=== PATIENT | female | born 1975 | race Caucasian/White ===

== ENCOUNTER 2017-09-06 10:44 | Outpatient (CLI) | payer BC | END 2017-09-06 10:45 | disposition home or self-care (01) | LOC: BICMAMMO 10:44 | PROVIDERS: ATTEND Obstetrics & Gynecology | DX: Z12.31 Encounter for screening mammogram for malignant neoplasm of breast (principal) | CPT/HCPCS: 77063; 77067 ==

== ENCOUNTER 2018-10-10 16:19 | Outpatient (CLI) | payer BC ==
--- NOTE | 2018-10-10 17:05 | MMO ---
Bilateral MAMMO Bilat Screen [facility]. CLINICAL HISTORY: Patient is 42 years old and is seen for screening. The patient has no family history of breast cancer. The patient has no personal history of cancer. VIEWS: The views performed were: bilateral craniocaudal with tomosynthesis and bilateral mediolateral oblique with tomosynthesis. FILMS COMPARED: The present examination has been compared to prior imaging studies performed at [facility] on 07/13/2016, 07/23/2016 and 09/06/2017, and at [facility] on 11/11/2011. MAMMOGRAM FINDINGS: There are scattered fibroglandular densities. Right breast: Asymmetry in the upper outer right breast. Left breast: There are no suspicious masses, calcifications or areas of architectural distortion. In the left breast, there are no suspicious masses, calcifications or areas of architectural distortion. IMPRESSION: FINDING IN THE RIGHT BREAST REQUIRES ADDITIONAL EVALUATION. ADDITIONAL PROJECTIONS (RIGHT CRANIOCAUDAL SPOT COMPRESSION; RIGHT MEDIOLATERAL OBLIQUE SPOT COMPRESSION; AND RIGHT MEDIOLATERAL) ARE RECOMMENDED. ULTRASOUND IF ASYMMETRY PERSISTS. THE RESULTS OF THIS EXAM WERE SENT TO THE PATIENT. ACR BI-RADS Category 0 - Incomplete: Need additional imaging evaluation. [facility] will notify the patient of the need for additional imaging services. MAMMOGRAPHY NOTE: 1. A negative mammogram report should not delay a biopsy if a dominant of clinically suspicious mass is present. 2. Approximately 10% to 15% of breast cancers are not detected by mammography. 3. Adenosis and dense breasts may obscure an underlying neoplasm. Reported by: CHITO CLAYTON MD Electonically Signed: [id number]
== END 2018-10-10 16:20 | disposition home or self-care (01) ==
LOC: BICMAMMO 16:19
PROVIDERS: ATTEND Obstetrics & Gynecology
DX: Z12.31 Encounter for screening mammogram for malignant neoplasm of breast (principal)
CPT/HCPCS: 77063; 77067

== ENCOUNTER 2018-10-13 13:47 | Outpatient (CLI) | payer BC ==
--- NOTE | 2018-10-17 06:47 | MMO ---
Right Breast MAMMO Unilat Diag [facility]. CLINICAL HISTORY: Patient is 42 years old and is seen for diagnostic exam. The patient has no family history of breast cancer. The patient has no personal history of cancer. VIEWS: The views performed were: right craniocaudal with tomosynthesis; right mediolateral oblique with tomosynthesis; and right mediolateral with tomosynthesis. FILMS COMPARED: The present examination has been compared to prior imaging studies performed at [facility] on 07/13/2016, 07/23/2016, 09/06/2017 and 10/10/2018. MAMMOGRAM FINDINGS: There are scattered fibroglandular densities. Additional evaluation was performed for the additional evaluation finding - 0 in the right breast seen on 10/10/2018. On the present examination, additional evaluation finding - 0 does not persist. Focal assymetry in the outer right breast did not persist. There are no suspicious masses, suspicious calcifications, or new areas of architectural distortion. IMPRESSION: THERE IS NO MAMMOGRAPHIC EVIDENCE OF MALIGNANCY. THE FINDINGS AND RECOMMENDATIONS WERE DISCUSSED WITH THE PATIENT PRIOR TO HER LEAVING THE CENTER. A ROUTINE FOLLOW-UP MAMMOGRAM IN 1 YEAR IS RECOMMENDED. THE RESULTS OF THIS EXAM WERE SENT TO THE PATIENT. ACR BI-RADS Category 2 - Benign finding MAMMOGRAPHY NOTE: 1. A negative mammogram report should not delay a biopsy if a dominant of clinically suspicious mass is present. 2. Approximately 10% to 15% of breast cancers are not detected by mammography. 3. Adenosis and dense breasts may obscure an underlying neoplasm. Reported by: CAMDEN PINA MD Electonically Signed: [id number]
== END 2018-10-13 13:48 | disposition home or self-care (01) ==
LOC: BICMAMMO 13:47
PROVIDERS: ATTEND Obstetrics & Gynecology
DX: R92.2 Inconclusive mammogram (principal)
CPT/HCPCS: G0279

== ENCOUNTER 2023-01-26 17:00 | Outpatient (CLI) | payer BC | END 2023-01-26 17:01 | disposition home or self-care (01) | LOC: SLEEPLAB 17:00 | PROVIDERS: ATTEND Student in an Organized Health Care Education/Training Program | DX: G47.33 Obstructive sleep apnea (adult) (pediatric) (principal); F41.9 Anxiety disorder, unspecified; E66.9 Obesity, unspecified; Z68.36 Body mass index [BMI] 36.0-36.9, adult; R06.83 Snoring; I10 Essential (primary) hypertension | CPT/HCPCS: 95811 ==